=== PATIENT | male | born 1970 | race Caucasian/White ===

== ENCOUNTER 2020-11-09 00:57 | Inpatient (IN) | payer OTHER ==
[~2020-11-09 00:57] MED LIST: IBUPROFEN600 MG PO; NORCO 5-325 TA1 EACH PO; OMNICEF 300 MG300 MG PO; PREDNISONE 50 M50 MG PO
[2020-11-09 01:27] LABS: RED BLOOD COUNT 5.99 M/UL (4.20-5.50); WHITE BLOOD COUNT 13.6 K/UL (4.5-11.0)
[2020-11-09 01:42] LABS: BUN/CREATININE RATIO 22 (0-10)
[2020-11-09] MEDS ORDERED: NEURONTIN800 MG PO (23:35)
[2020-11-09] MEDS ORDERED: SUBOXONE 8 MG-1 EACH SL (23:36)
[2020-11-09] MEDS ORDERED: ALBUTEROL2.5 MG/3 M INH (23:37)
[2020-11-10 03:47] LABS: RED BLOOD COUNT 5.39 M/UL (4.20-5.50); WHITE BLOOD COUNT 24.7 K/UL (4.5-11.0)
[2020-11-10 03:48] LABS: HEMOGLOBIN 14.8 gm/dl (14.0-17.5)
[2020-11-10 03:50] LABS: BUN/CREATININE RATIO 23 (0-10)
[2020-11-10] MEDS ORDERED: IPRAT-ALBUT 0.5-3 ML NEB (10:24)
[2020-11-10] MEDS ORDERED: BROVANA15 MCG/2 M NEB (10:24)
--- NOTE | 2020-11-10 19:32 | NUR ---
PT BEING TRANSFERRED. REPORT CALLED TO AMARI CASANOVA AT [facility] IN [place]. PT TO BE TRANSFERRED TO [facility] ROOM 18. PT STABLE. CALLED TO EMS TRANSPORT.
--- NOTE | 2020-11-10 22:15 | NUR ---
EMS HERE TO TRANSPORT PT TO [facility]. PT REMAINS IN STABLE CONDITION.
== END 2020-11-10 22:15 | disposition short-term general hospital (02) | DRG 199 ==
LOC: ER1 00:57 → CDU 03:07 → PROG CARE 20:32
PROVIDERS: Emergency Medicine; ADMIT Internal Medicine
PROC: 0W9930Z Drainage of Right Pleural Cavity with Drainage Device, Percutaneous Approach (ICD-10-PCS; principal; 2020-11-09)
DX: J93.11 Primary spontaneous pneumothorax (principal); J96.01 Acute respiratory failure with hypoxia; J44.9 Chronic obstructive pulmonary disease, unspecified; Z20.822 Contact with and (suspected) exposure to COVID-19; F17.210 Nicotine dependence, cigarettes, uncomplicated; I10 Essential (primary) hypertension; Z79.899 Other long term (current) drug therapy; R73.03 Prediabetes
CPT/HCPCS: 32551; 36415; 36600; 71045; 80048; 80053; 81001; 82550; 82553; 82803; 83605; 83874; 83880; 84484; 85025; 87086; 93005; 94640; 94760; 96365; 96366; 96368; 96375; 99285; J0696; J1200; J1956; J2250; J2270; J2405; J2765; J2920; J2930; J3010; J7030; U0002

== ENCOUNTER 2020-11-25 20:57 | Emergency (ER) | payer OTHER ==
[~2020-11-25 20:57] MED LIST changes: +ALBUTEROL2.5 MG/3 M INH; +BROVANA15 MCG/2 M NEB; +IPRAT-ALBUT 0.5-3 ML NEB; +NEURONTIN800 MG PO; +SUBOXONE 8 MG-1 EACH SL
== END 2020-11-25 21:37 | disposition left against medical advice (07) ==
LOC: ER1 20:57
DX: R06.81 Apnea, not elsewhere classified (principal); Z53.21 Procedure and treatment not carried out due to patient leaving prior to being seen by health care provider